=== PATIENT | female | born 1985 | race Caucasian/White ===

== ENCOUNTER 2018-08-15 15:18 | Inpatient (IN) | payer BC ==
[~2018-08-15] VITALS: Ht 147.3 cm; Wt 64.3 kg
[2018-08-15] MEDS ORDERED: AMPH20TA2 PO (15:53)
[2018-08-15] MEDS ORDERED: SODIUM CHLORIDE 0.9% 1,000 ML IV ONE (15:57)
[2018-08-15 16:00] LABS: RED BLOOD COUNT 5.66 x10^6/uL (3.82-5.3)
[2018-08-15] MEDS ORDERED: SODIUM CHLORIDE 0.9% 1,000ML IVBOLUS ONE (16:00)
[2018-08-15] MEDS ORDERED: SODIUM CHLORIDE FLUSH 10ML SYR IVF ONE (16:00)
[2018-08-15 16:01] LABS: MEAN CORPUSCULAR HEMOGLOBIN 25.6 pg (27.0-34.8); MEAN CORPUSCULAR HGB CONC 33.5 g/dL (32.4-35.8); MEAN CORPUSCULAR VOLUME 76.6 fL (80-100); MEAN PLATELET VOLUME 8.1 fL (7.4-10.4); PLATELET COUNT 415 x10^3/uL (130-400); RED CELL DISTRIBUTION WIDTH 14.5 % (9.6-15.2)
[2018-08-15 16:12] LABS: ALANINE AMINOTRANSFERASE 30 U/L (12-78); ALBUMIN 4.3 g/dL (3.4-5.0); ANION GAP 12 mmol/L (5-15); CALCIUM 9.2 mg/dL (8.5-10.1); CHLORIDE 105 mmol/L (98-107)
[2018-08-15 16:14] LABS: ALKALINE PHOSPHATASE 86 U/L (45-117); BILIRUBIN,TOTAL 0.7 mg/dL (0.2-1.0); TOTAL PROTEIN 8.6 g/dL (6.4-8.2)
[2018-08-15 16:40] LABS: HCG UR SG > 1.030 (1.003-1.030); MICROSCOPIC INDICATED
[2018-08-15 16:49] LABS: MD YES
[2018-08-15 16:53] LABS: LYMPH#(MANUAL) 1.67 x10^3/uL (1-3.4); LYMPHS% (MANUAL) 9 % (22-44); MONOS#(MANUAL) 0.74 x10^3/uL (0.3-2.7); MONOS% (MANUAL) 4 % (2-9); SEG#(MANUAL) 16.18 x10^3/uL (1.8-6.8); SEGS% (MANUAL) 87 % (42-75)
[2018-08-15 16:55] LABS: <PLATELET ESTIMATE> INCREASED; <PLT MORPHOLOGY> NORMAL PLT MORPH; HYPOCHROMIA 1+; MICROCYTOSIS 1+
[2018-08-15 16:56] LABS: CULTURE INDICATED? NO
[2018-08-15] MEDS ORDERED: ONDANSETRON 2MG/ML, 2ML ONE (17:57)
[2018-08-15] MEDS ORDERED: HYDROmorphone 2 MG/ML, 1ML ONE ×2 (17:57→19:52)
[2018-08-15] MEDS ORDERED: ONDANSETRON 2MG/ML, 2ML IVPush ONE (18:00)
[2018-08-15] MEDS: HYDROmorphone 2 MG/ML, 1ML IVPush PRN ×2 (18:03→19:55)
[2018-08-15] MEDS ORDERED: OMNIPAQUE 350 MG/ML, 100ML BOTTLE ONE (18:39)
[2018-08-15] MEDS ORDERED: SODIUM CHLORIDE FLUSH 10ML SYR IVF PRN (20:30)
[2018-08-15 21:38] VITALS: BP 96/66
[2018-08-15] MEDS ORDERED: morphine SULFATE 10 MG/ML, 1ML IVPush PRN (22:00)
[2018-08-15] MEDS ORDERED: ONDANSETRON ODT 4 MG PO PRN (22:00)
[2018-08-15] MEDS ORDERED: PROMETHAZINE 25 MG/ML, 1ML IM PRN (22:00)
[2018-08-15] MEDS ORDERED: GABAPENTIN 300 MG CAPSULE PO PRN (22:00)
[2018-08-15] MEDS ORDERED: ONDANSETRON 2MG/ML, 2ML IVPush PRN (22:00)
[2018-08-15] MEDS ORDERED: DOCUSATE 100 MG CAPSULE PO PRN (22:00)
[2018-08-15] MEDS ORDERED: LABETALOL 5MG/ML, 20ML IVPush PRN (22:00)
[2018-08-15] MEDS ORDERED: ACETAMINOPHEN 325 MG TABLET PO PRN (22:00)
[2018-08-15] MEDS ORDERED: hydrALAzine 20 MG/ML, 1ML IVPush PRN (22:00)
[2018-08-15] MEDS: D5%-0.9% NACL+KCL 20MEQ 1,000 ML IV SCH (22:59)
[2018-08-15] MEDS: HEPARIN 5,000 UNITS/ML, 1ML SQ SCH (22:59)
[2018-08-15 23:11] LABS: FREE T4 (FREE THYROXINE) 1.17 ng/dL (0.76-1.46); THYROID STIMULATING HORMONE 2.1 mIU/L (0.358-3.740)
[2018-08-15 23:14] LABS: HEMOGLOBIN A1C 5.6 % (4.2-6.3)
[2018-08-15 23:16] LABS: CLOSTRIDIUM DIFFICILE ANTIGEN NEGATIVE; CLOSTRIDIUM DIFFICILE TOXIN NEGATIVE (Negative)
[2018-08-15] MEDS: KETOROLAC 30 MG/1 ML IV PRN (23:24)
[2018-08-16 03:01] VITALS: BP 93/54
[2018-08-16] MEDS: HEPARIN 5,000 UNITS/ML, 1ML SQ SCH ×2 (06:06→14:00)
[2018-08-16 06:27] LABS: BASOPHILS # (AUTO) 0.02 x10^3/uL (0-0.1); BASOPHILS % (AUTO) 0 % (0-1); EOSINOPHILS % (AUTO) 0 % (1-7); LYMPHOCYTES # (AUTO) 0.65 x10^3/uL (1-3.4); LYMPHOCYTES % (AUTO) 8 % (22-44); MD NO; MEAN CORPUSCULAR HEMOGLOBIN 25.6 pg (27.0-34.8); MEAN CORPUSCULAR HGB CONC 33.4 g/dL (32.4-35.8); MEAN CORPUSCULAR VOLUME 76.7 fL (80-100); MEAN PLATELET VOLUME 8.1 fL (7.4-10.4); MONOCYTES # (AUTO) 0.42 x10^3/uL (0.2-0.8); MONOCYTES % (AUTO) 5 % (2-9); NEUTROPHILS # (AUTO) 7.17 x10^3/uL (1.8-6.8); NEUTROPHILS % (AUTO) 87 % (42-75); PLATELET COUNT 342 x10^3/uL (130-400); RED BLOOD COUNT 4.74 x10^6/uL (3.82-5.3); RED CELL DISTRIBUTION WIDTH 15.3 % (9.6-15.2)
[2018-08-16 06:40] LABS: CALCIUM 7.6 mg/dL (8.5-10.1); CHLORIDE 111 mmol/L (98-107)
[2018-08-16 06:46] LABS: ALANINE AMINOTRANSFERASE 21 U/L (12-78); ALBUMIN 3.2 g/dL (3.4-5.0); ALKALINE PHOSPHATASE 68 U/L (45-117); ANION GAP 10 mmol/L (5-15); BILIRUBIN,TOTAL 0.6 mg/dL (0.2-1.0); CHOL/HDL RATIO 3.6; CHOLESTEROL, TOTAL 129 mg/dL (140-239); CREATININE 0.64 mg/dL (0.55-1.02); HDL CHOL % 28 % (28-40); HDL CHOLESTEROL (DIRECT) 36 mg/dL (40-60); LDL CHOLESTEROL,CALCULATED 66 mg/dL (54-169); LDL/HDL RATIO 1.8 (0.5-3.0); TOTAL PROTEIN 6.6 g/dL (6.4-8.2); TRIGLYCERIDES 133 mg/dL (50-200); VLDL CHOLESTEROL 27 mg/dL (0-25)
[2018-08-16 07:45] VITALS: BP 90/58
[2018-08-16] MEDS: D5%-0.9% NACL+KCL 20MEQ 1,000 ML IV SCH (08:10)
[2018-08-16] MEDS: KETOROLAC 30 MG/1 ML IV PRN (11:23)
[2018-08-16 12:56] VITALS: BP 93/60
== END 2018-08-16 15:38 | disposition home or self-care (01) | DRG 390 ==
LOC: ED 17:20 → EDIP 20:06 → 4NOR 22:02 → DCLOUNGE 08-16 15:31
PROVIDERS: ADMIT Internal Medicine; ATTEND Internal Medicine
DX: K56.0 Paralytic ileus (principal); F90.9 Attention-deficit hyperactivity disorder, unspecified type; D72.823 Leukemoid reaction; E86.0 Dehydration; E87.6 Hypokalemia; Z80.3 Family history of malignant neoplasm of breast; Z80.8 Family history of malignant neoplasm of other organs or systems; Z80.41 Family history of malignant neoplasm of ovary
CPT/HCPCS: 36415; 74021; 74177; 76830; 80053; 80061; 81001; 81025; 83036; 83735; 84439; 84443; 85025; 87046; 87324; 87427; 89055; 93005; 96361; 96374; 96375; 96376; G0378; J1170; J1644; J1885; J2405; J2550; Q9967; J3480; J7030

== ENCOUNTER 2018-08-18 11:08 | Emergency (ER) | payer BC ==
[~2018-08-18] VITALS: Ht 144.8 cm; Wt 63.7 kg
[~2018-08-18 11:08] MED LIST: AMPH20TA2 PO
[2018-08-18 11:59] LABS: BASOPHILS # (AUTO) 0.02 x10^3/uL (0-0.1); BASOPHILS % (AUTO) 0 % (0-1); EOSINOPHILS # (AUTO) 0.06 x10^3/uL (0-0.4); EOSINOPHILS % (AUTO) 1 % (1-7); LYMPHOCYTES # (AUTO) 1.64 x10^3/uL (1-3.4); LYMPHOCYTES % (AUTO) 28 % (22-44); MD NO; MEAN CORPUSCULAR HEMOGLOBIN 25.3 pg (27.0-34.8); MEAN CORPUSCULAR HGB CONC 33.3 g/dL (32.4-35.8); MEAN CORPUSCULAR VOLUME 75.9 fL (80-100); MEAN PLATELET VOLUME 7.8 fL (7.4-10.4); MONOCYTES # (AUTO) 0.48 x10^3/uL (0.2-0.8); MONOCYTES % (AUTO) 8 % (2-9); NEUTROPHILS # (AUTO) 3.75 x10^3/uL (1.8-6.8); NEUTROPHILS % (AUTO) 63 % (42-75); PLATELET COUNT 395 x10^3/uL (130-400); RED BLOOD COUNT 4.89 x10^6/uL (3.82-5.3); RED CELL DISTRIBUTION WIDTH 15.3 % (9.6-15.2)
[2018-08-18] MEDS ORDERED: MORPHINE SULFATE 4 MG/ML, 1ML IVPush PRN (12:00)
[2018-08-18] MEDS ORDERED: ONDANSETRON 2MG/ML, 2ML IVPush ONE (12:00)
[2018-08-18] MEDS ORDERED: SODIUM CHLORIDE FLUSH 10ML SYR IVF ONE (12:00)
[2018-08-18 12:06] LABS: ALBUMIN 3.4 g/dL (3.4-5.0); ANION GAP 8 mmol/L (5-15); CALCIUM 8.8 mg/dL (8.5-10.1); CHLORIDE 112 mmol/L (98-107); CREATININE 0.52 mg/dL (0.55-1.02)
[2018-08-18] MEDS ORDERED: MORPHINE SULFATE 4 MG/ML, 1ML ONE (12:23)
[2018-08-18] MEDS ORDERED: ONDANSETRON 2MG/ML, 2ML ONE (12:23)
[2018-08-18 13:10] LABS: MICROSCOPIC INDICATED
[2018-08-18 13:24] LABS: CULTURE INDICATED? NO
[2018-08-18 13:50] VITALS: BP 100/57
== END 2018-08-18 13:52 | disposition home or self-care (01) ==
LOC: ED 11:17
DX: K56.0 Paralytic ileus (principal)
CPT/HCPCS: 36415; 74021; 80048; 81001; 82040; 85025; 96374; 96375; 99285; J2405